=== PATIENT | male | born 1940 | race Caucasian/White ===

== ENCOUNTER 2020-02-05 18:39 | Inpatient (IN) | payer MEDICARE ==
[~2020-02-05] VITALS: Ht 177.8 cm; Wt 88.1 kg
[2020-02-05] MEDS ORDERED: ONDANSETRON HCL 4 MG/2 ML VIAL ONE (19:18)
[2020-02-05 19:28] LABS: BASOPHILS % (AUTO) 0.8 % (0.0-5.0); EOSINOPHILS % (AUTO) 6.3 % (0.0-8.0); LYMPHOCYTES % (AUTO) 16.1 % (21.0-51.0); MEAN CORPUSCULAR HEMOGLOBIN 28.7 pg (27.0-33.0); MONOCYTES % (AUTO) 10.3 % (3.0-13.0); NEUTROPHILS % (AUTO) 65.6 % (40.0-77.0); PLATELET COUNT (AUTO) 182 K/uL (130-400); RED BLOOD CELL COUNT(AUTO) 4.88 MIL/uL (4.50-6.20); RED CELL DISTRIBUTION WIDTH 14.8 % (11.0-15.5); WHITE BLOOD COUNT (AUTO) 7.9 K/uL (4.8-10.8)
[2020-02-05 19:49] LABS: ALBUMIN 3.7 g/dL (3.5-5.0); BILIRUBIN,TOTAL 0.8 mg/dL (0.2-1.0); CREATININE 1.3 mg/dL (0.5-1.5); POTASSIUM 3.7 mmol/L (3.5-5.1); TOTAL PROTEIN, SERUM 7.8 g/dL (6.0-8.3)
[2020-02-05 19:53] LABS: INR 0.99 (0.85-1.15); PARTIAL THROMBOPLASTIN TIME 27.3 SEC (26.3-35.5); PROTHROMBIN TIME 10.7 SEC (9.6-11.6)
[2020-02-05] MEDS ORDERED: ACETAMINOPHEN 325 MG TAB PO PRN ×2 (20:45)
[2020-02-05] MEDS ORDERED: ONDANSETRON HCL 4 MG/2 ML VIAL IV PRN (20:45)
[2020-02-05] MEDS ORDERED: LACTULOSE 20 GM/30 ML UDCUP PO PRN (20:45)
[2020-02-05] MEDS ORDERED: LACTATED RINGERS 1000ML 1,000 ML IV SCH (20:45)
[2020-02-05] MEDS ORDERED: IOHEXOL-350 75 ML VIAL IV ONE (21:04)
[2020-02-05 22:45] VITALS: BP 121/78
--- NOTE | 2020-02-05 23:00 | NUR ---
ER ARRIVAL Report received varun Nolen Lvn at 2221.Pt arrived from ER,aao x 3,denies any pain or sob.Paged [employer] to clarify Ivf ordered.
--- NOTE | 2020-02-05 23:08 | NUR ---
[employer] APPRENTICE called back and order for IVF clarified,she states con with Lr as prev ordered.
[2020-02-06 01:04] LABS: CREATININE 1.3 mg/dL (0.5-1.5); POTASSIUM 3.7 mmol/L (3.5-5.1)
--- NOTE | 2020-02-06 02:30 | NUR ---
ASLEEP Pt appears to be asleep,respirations even and unlabored.
[2020-02-06 03:38] VITALS: BP 121/74
--- NOTE | 2020-02-06 04:30 | NUR ---
CONCERNS Pt verbalized concern,states,"I'm afraid of the Danielle Virus and I want to do all the tests at Dr Mathias office".Explained to him low sodium level,risks associated with it and he verbalized understanding and he will wait for provider to round.
[2020-02-06 05:22] LABS: BASOPHILS % (AUTO) 0.6 % (0.0-5.0); EOSINOPHILS % (AUTO) 3.1 % (0.0-8.0); HEMATOCRIT 39.5 % (42-54); LYMPHOCYTES % (AUTO) 17.6 % (21.0-51.0); MEAN CORPUSCULAR HEMOGLOBIN 28.5 pg (27.0-33.0); MEAN CORPUSCULAR HGB CONC 34.4 g/dL (32.0-36.0); MEAN CORPUSCULAR VOLUME 82.8 fL (79-99); MONOCYTES % (AUTO) 9.7 % (3.0-13.0); PLATELET COUNT (AUTO) 160 K/uL (130-400); RED BLOOD CELL COUNT(AUTO) 4.77 MIL/uL (4.50-6.20); RED CELL DISTRIBUTION WIDTH 14.7 % (11.0-15.5); WHITE BLOOD COUNT (AUTO) 7.1 K/uL (4.8-10.8)
[2020-02-06 05:50] LABS: ALBUMIN 3.5 g/dL (3.5-5.0); BILIRUBIN,TOTAL 0.5 mg/dL (0.2-1.0); CREATININE 1.1 mg/dL (0.5-1.5); POTASSIUM 3.8 mmol/L (3.5-5.1); TOTAL PROTEIN, SERUM 7.4 g/dL (6.0-8.3)
[2020-02-06 08:12] VITALS: BP 128/81
[2020-02-06] MEDS ORDERED: SODIUM CHLORIDE 0.9% 1000ML 1,000 ML IV SCH (08:15)
[2020-02-06 09:06] LABS: THYROID STIMULATING HORMONE 0.81 uIU/mL (0.36-3.74); URIC ACID 3.8 mg/dL (2.6-7.2)
--- NOTE | 2020-02-06 09:20 | NUR ---
DR. BOOM NUR CAME TO ROUND AND SPOKE TO PT. AT BEDSIDE. PT. ADAMANT ABOUT LEAVE FEARING THE COVID19 AND WANTS TO LEAVE AMA. DR. ECHEVARRIA EXPLAINED WHY HE SHOULD STAY D/T NA 123. EXPLAINED THE RISK AND PT AWARE OF RISK OF LOW NA. PT. STATES HE HAS AN APPT WITH HIS PRIMARY TOMORROW AND DOESN'T WANT TO MISS HIS APPT. AND THAT HIS DRChrissy CAN TREAT HIS LOW SODIUM. PER DR. NUR OK FOR PT TO LEAVE AMA, PT AWARE OF RISKS. WILL CALL DR. OTTO TO MAKE HIM AWARE OF PT. WANTING TO LEAVE AMA.
--- NOTE | 2020-02-06 09:25 | NUR ---
DR. OTTO SPOKE WITH DR. OTTO MADE HIM AWARE PT WANTS TO LEAVE AMA, MADE HIM AWARE DR. NUR SPOKE TO PT. AND MADE HIM AWARE OF RISK OF LOW SODIUM 123. DR. OTTO STATED ITS FINE WITH HIM GOING AMA.
--- NOTE | 2020-02-06 10:00 | NUR ---
NO AMA PT CALLED HIS FRIEND STATING HE WAS GOING AMA, HIS FRIEND CONVINCED HIM TO STAY. BOTH DR. NUR AND DR. OTTO AWARE PATIENT IS NOT GOING HOME. WILL CONTINUE TO MONITOR NA LEVELS.
[2020-02-06] MEDS: FAMOTIDINE/PF 20 MG/2 ML VIAL IV SCH (10:19)
[2020-02-06 11:13] VITALS: BP 121/76
--- NOTE | 2020-02-06 14:00 | NUR ---
PT WAS ABLE TO WALK IN SIDE HIS ROOM WITH NO DIZZINESS, PT REST IN BED COMFORTABLY WILL CONTINUE TO MONITOR. PT V/S STABLE
--- NOTE | 2020-02-06 14:50 | NUR ---
RD Notification Pt admitted with Hyponatremia, near syncope and GBW. Pt recently fasted for 3 days prior to eating a large meal, resulting in GBW and hyponatremia, per MD note. Recommend to liberalize Pt diet order to Regular, Low fat diet order with 1.5L fluid restriction secondary to hyponatremia. Recommend Ensure Clear with meals. RD to continue to monitor. Please notify as additional nutrition concerns arise. Thank you. Addendum: 02/06/20 at [address] Amended: Links added.
[2020-02-06 16:13] VITALS: BP 120/69
--- NOTE | 2020-02-06 16:30 | NUR ---
INITIAL MET W PATIENT FOR DC PLANNING, LIVES WITH SPOUSE, IS INDEPENDENT, DRIVES, DR. RUSSELL IS PCP, USES A ROLLING WALKER FOR LONG DISTANCE WALKING OUT OF THE HOME- FEELS SAFE TO RETURN HOME AT DC, NO DC NEEDS Addendum: 02/06/20 at 1938 by KOLBY ADAMS RN CM Amended: Links added.
--- NOTE | 2020-02-06 16:31 | NUR ---
PT IN BED WATCHING TV, WILL CONTINUE TO MONITOR
[2020-02-06] MEDS ORDERED: IBUP-2784 PO (17:06)
[2020-02-06] MEDS ORDERED: GABA-529 PO (17:06)
[2020-02-06 20:04] VITALS: BP 123/77
[2020-02-06 23:35] VITALS: BP 104/65
[2020-02-07 04:07] VITALS: BP 95/66
[2020-02-07 04:54] LABS: CREATININE 1.3 mg/dL (0.5-1.5); MAGNESIUM 2.1 mg/dL (1.80-2.40); PHOSPHORUS 2.7 mg/dL (2.5-4.9); POTASSIUM 3.5 mmol/L (3.5-5.1)
[2020-02-07 08:03] VITALS: BP 97/55
[2020-02-07] MEDS: FAMOTIDINE/PF 20 MG/2 ML VIAL IV SCH (08:32)
[2020-02-07 11:16] VITALS: BP 113/69
--- NOTE | 2020-02-07 13:00 | NUR ---
PATIENT GIVEN DISCHARGE INSTRUCTION AND VERBALIZED NO QUESTIONS OR CONCERN VOICED AT THIS TIME, IV REMOVED WITH CATHETER INTACT AND SITE DRESSED, TELEMETRY UNIT NOTIFIED OF DISCHARGE AND MONITOR REMOVED , REVIEW MEDICATION AND FOLLOW-UP APPOINTMENTS, INSTRUCTED PATIENT THAT DR OTTO WOULD LIKE HIM TO CONTINUE 1.5 LITERS FLUID INTAKE A DAY. PATIENT VOICED UNDERSTANDING . WAITING FOR RIDE AND WILL CALL WHEN THEY GET HERE.
== END 2020-02-07 13:55 | disposition home or self-care (01) | DRG 309 ==
LOC: EDH 18:39 → EDHIP 20:38 → 3AH 22:45
PROVIDERS: ADMIT Internal Medicine; ATTEND Internal Medicine
DX: I45.9 Conduction disorder, unspecified (principal); E87.1 Hypo-osmolality and hyponatremia; I42.9 Cardiomyopathy, unspecified; N28.9 Disorder of kidney and ureter, unspecified; I25.10 Atherosclerotic heart disease of native coronary artery without angina pectoris; I11.9 Hypertensive heart disease without heart failure; I44.4 Left anterior fascicular block; I10 Essential (primary) hypertension; R63.1 Polydipsia; Z96.643 Presence of artificial hip joint, bilateral; Z96.652 Presence of left artificial knee joint; R00.1 Bradycardia, unspecified; Z87.891 Personal history of nicotine dependence; Z95.2 Presence of prosthetic heart valve
CPT/HCPCS: 36415; 71045; 71275; 80048; 80053; 80061; 82533; 82550; 83690; 83735; 83930; 83935; 84100; 84300; 84443; 84484; 84550; 85025; 85610; 85730; 93005; 97039; G0378; J2405; J3490; Q9967

== ENCOUNTER → 2021-09-16 | Outpatient (CLI) | payer OTHER ==
[~2021-09-16] MED LIST: GABA-529 PO
== END | disposition home or self-care (01) ==
LOC: RAH 13:03
PROVIDERS: ATTEND Family Medicine
DX: I37.1 Nonrheumatic pulmonary valve insufficiency (principal); Z95.3 Presence of xenogenic heart valve
CPT/HCPCS: 93306; 93356

== ENCOUNTER → 2024-01-06 | Outpatient (CLI) | payer OTHER | END | disposition home or self-care (01) | LOC: RAH 16:08 | PROVIDERS: ATTEND Family Medicine | DX: M19.072 Primary osteoarthritis, left ankle and foot (principal); L03.116 Cellulitis of left lower limb; M77.32 Calcaneal spur, left foot; M79.89 Other specified soft tissue disorders; M25.872 Other specified joint disorders, left ankle and foot | CPT/HCPCS: 73610; 73630 ==